=== PATIENT | male | born 1960 | race Caucasian/White ===

== ENCOUNTER 2019-06-25 20:06 | Inpatient (IN) | payer OTHER ==
[~2019-06-25] VITALS: Ht 162.5 cm; Wt 58.7 kg
[2019-06-25 20:20] VITALS: BP 200/110
[2019-06-25 20:39] LABS: BASO % 0.3 % (0.0-1.0); EOS # 0.2 10*3/uL (0.0-0.4); EOS % 1.3 % (1.0-4.0); HEMATOCRIT 28.7 % (42.0-52.0); HEMOGLOBIN 9.9 g/dl (14.0-18.0); LYMPH # 1.5 10*3/uL (1.3-4.4); LYMPH % 12.2 % (27.0-41.0); MEAN CELL VOLUME 82.7 fl (80.0-94.0); MEAN CORPUSCULAR HGB 28.5 pg (27.0-31.0); MEAN CORPUSCULAR HGB CONC 34.5 g/dl (33.0-37.0); MEAN PLATELET VOLUME 9.3 fl (9.6-12.3); MONO % 8.4 % (3.0-9.0); NEUT # 9.3 10*3/uL (2.3-7.9); PLATELET COUNT AUTOMATED 465 10*3/uL (130-400); RED BLOOD COUNT 3.47 10*6/uL (4.50-5.90); RED CELL DISTRI WIDTH 14.2 % (0-14.5); WHITE BLOOD COUNT 12.1 10*3/uL (4.8-10.8)
[2019-06-25 20:49] LABS: ACT PARTIAL THROMBO TIME 28.8 SECONDS (20.0-32.1); INTERNATIONAL NORM RATIO 0.9 (2.0-3.5)
[2019-06-25 20:56] LABS: ALBUMIN 2.3 gm/dl (3.1-4.5); CREATININE 3.01 mg/dL (0.70-1.30); POTASSIUM 2.7 mmol/L (3.5-5.1); TOTAL PROTEIN 7.4 gm/dL (6.4-8.2); TROPONIN I 0.044 ng/ml (<0.045)
[2019-06-25 21:08] VITALS: BP 190/108
[2019-06-25 21:28] LABS: BILIRUBIN NEGATIVE (NEGATIVE); BLOOD 2+ (NEGATIVE); CLARITY CLEAR (CLEAR); COLOR YELLOW (YELLOW); GLUCOSE TRACE (NEGATIVE); KETONE NEGATIVE (NEGATIVE); LEUKO ESTERASE NEGATIVE (NEGATIVE); NITRITE NEGATIVE (NEGATIVE); UROBILINOGEN 0.2 E.U./dl (0.2-1.0)
[2019-06-25 21:42] VITALS: BP 180/108
[2019-06-25 21:42] LABS: BACTERIA 1+
[2019-06-25 22:28] LABS: URINE AMPHETAMINES < 1000 (1000ng/ml); URINE BARBITURATES < 200 (200ng/ml); URINE BENZODIAZEPINES < 200 (200ng/ml); URINE CANNABINOIDS (THC) < 50 (50ng/ml); URINE COCAINE < 300 (300ng/ml); URINE METHADONE < 300 (300ng/ml); URINE OPIATES < 300 (300ng/ml)
[2019-06-25 22:32] VITALS: BP 198/108
[2019-06-25 22:35] LABS: URINE PHENCYCLIDINE < 25 (25ng/ml)
[2019-06-25 23:24] VITALS: BP 194/110
[2019-06-26] VITALS (11 sets, daily range): BP systolic 160–200; BP diastolic 64–106
[2019-06-26] MEDS ORDERED: HYDRALAZINE HC100 MG PO (00:39)
[2019-06-26] MEDS ORDERED: CLONIDINE HCL0.1 MG PO (00:40)
[2019-06-26] MEDS ORDERED: ALDACTONE25 M1 PO (00:41)
[2019-06-26] MEDS ORDERED: OMEPRAZOLE MAGN20 MG PO (00:41)
[2019-06-26] MEDS ORDERED: LOPRESSOR50 M1 PO (00:42)
[2019-06-26] MEDS ORDERED: TYLENOL EXTRA500 MG PO (00:42)
[2019-06-26 01:28] LABS: ABG BASE EXCESS 6.3 mmol/L (-2.0-2.0); ARTERIAL BLOOD GAS PH 7.586 (7.35-7.45)
[2019-06-26 03:07] LABS: BASO # 0.1 10*3/uL (0.0-0.1); BASO % 0.4 % (0.0-1.0); EOS # 0.1 10*3/uL (0.0-0.4); HEMOGLOBIN 9.9 g/dl (14.0-18.0); LYMPH # 1.2 10*3/uL (1.3-4.4); LYMPH % 10.1 % (27.0-41.0); MEAN CELL VOLUME 81.9 fl (80.0-94.0); MEAN CORPUSCULAR HGB 28.9 pg (27.0-31.0); MEAN CORPUSCULAR HGB CONC 35.4 g/dl (33.0-37.0); MEAN PLATELET VOLUME 9.2 fl (9.6-12.3); MONO # 0.9 10*3/uL (0.1-1.0); MONO % 7.1 % (3.0-9.0); NEUT # 9.7 10*3/uL (2.3-7.9); NEUT % 80.3 % (47.0-73.0); PLATELET COUNT AUTOMATED 451 10*3/uL (130-400); RED BLOOD COUNT 3.42 10*6/uL (4.50-5.90); RED CELL DISTRI WIDTH 14.1 % (0-14.5); WHITE BLOOD COUNT 12.1 10*3/uL (4.8-10.8)
[2019-06-26 03:19] LABS: ACT PARTIAL THROMBO TIME 29.3 SECONDS (20.0-32.1); INTERNATIONAL NORM RATIO 0.9 (2.0-3.5)
[2019-06-26 03:28] LABS: ALBUMIN 2.2 gm/dl (3.1-4.5); CREATININE 3.02 mg/dL (0.70-1.30); PHOSPHOROUS 2.8 mg/dL (2.5-4.9); POTASSIUM 2.9 mmol/L (3.5-5.1); TOTAL PROTEIN 7.1 gm/dL (6.4-8.2)
[2019-06-26 03:33] LABS: FREE T4 1.44 ng/dl (0.76-1.46); THYROID STIM HORMONE (HS) 0.62 uIU/ml (0.358-4.75)
[2019-06-26 06:51] LABS: VITAMIN D, 25-HYDROXY 11.3 ng/mL (30-100)
[2019-06-27] VITALS: BP 162/97
[2019-06-27 07:05] LABS: BASO % 0.4 % (0.0-1.0); EOS # 0.2 10*3/uL (0.0-0.4); EOS % 1.9 % (1.0-4.0); HEMATOCRIT 26.6 % (42.0-52.0); LYMPH # 1.6 10*3/uL (1.3-4.4); LYMPH % 14.4 % (27.0-41.0); MEAN CELL VOLUME 84.4 fl (80.0-94.0); MEAN CORPUSCULAR HGB 28.6 pg (27.0-31.0); MEAN CORPUSCULAR HGB CONC 33.8 g/dl (33.0-37.0); MEAN PLATELET VOLUME 9.5 fl (9.6-12.3); MONO % 8.7 % (3.0-9.0); NEUT # 8.1 10*3/uL (2.3-7.9); PLATELET COUNT AUTOMATED 460 10*3/uL (130-400); RED BLOOD COUNT 3.15 10*6/uL (4.50-5.90); RED CELL DISTRI WIDTH 14.6 % (0-14.5)
[2019-06-27 07:16] LABS: ALBUMIN 2.3 gm/dl (3.1-4.5); CREATININE 2.83 mg/dL (0.70-1.30); PHOSPHOROUS 3.6 mg/dL (2.5-4.9); POTASSIUM 3.2 mmol/L (3.5-5.1)
[2019-06-27 08:10] VITALS: BP 166/100; BP 167/110
[2019-06-27 12:30] VITALS: BP 137/78
[2019-06-27 16:00] VITALS: BP 158/92
[2019-06-27] MEDS ORDERED: AMLODIPINE BESYL5 MG PO (17:54)
[2019-06-28 06:04] LABS: TOTAL PROTEIN, SERUM 6.3 g/dL (6.0-8.5)
[2019-06-28 07:06] LABS: HEPATITIS B SURFACE AG Negative (Negative); HEPATITIS C VIRUS ANTIBODY <0.1 (0.0-0.9)
[2019-06-28 08:08] LABS: COMPLEMENT C4 001834 26 mg/dL (14-44)
[2019-06-28 15:04] LABS: A/G RATIO 0.6 (0.7-1.7); ALBUMIN 2.4 g/dL (2.9-4.4); ALPHA-1-GLOBULIN 0.6 g/dL (0.0-0.4); ALPHA-2-GLOBULIN 1.2 g/dL (0.4-1.0); BETA GLOBULIN 1.2 g/dL (0.7-1.3); GAMMA GLOBULIN 0.9 g/dL (0.4-1.8); GLOBULIN, TOTAL 3.9 g/dL (2.2-3.9); M-SPIKE Not Observed g/dL (Not Observed)
[2019-06-28 16:06] LABS: ATYPICAL PANCA 1:20 titer (Neg:<1:20); CYTOPLASMIC (C-ANCA) <1:20 titer (Neg:<1:20)
== END 2019-06-27 19:35 | disposition home or self-care (01) | DRG 133 ==
LOC: ED 20:06 → 4E 23:40 → EDHOLD 23:40 → 4E 23:47
PROVIDERS: Emergency Medicine Emergency Medical Services; Hospitalist; Internal Medicine; ADMIT Internal Medicine
DX: J96.01 Acute respiratory failure with hypoxia (principal); N17.0 Acute kidney failure with tubular necrosis; I16.1 Hypertensive emergency; I11.0 Hypertensive heart disease with heart failure; D64.9 Anemia, unspecified; E87.1 Hypo-osmolality and hyponatremia; E43 Unspecified severe protein-calorie malnutrition; I50.9 Heart failure, unspecified; F17.210 Nicotine dependence, cigarettes, uncomplicated; D72.829 Elevated white blood cell count, unspecified; R31.9 Hematuria, unspecified; E87.8 Other disorders of electrolyte and fluid balance, not elsewhere classified; E83.41 Hypermagnesemia; R74.0 Nonspecific elevation of levels of transaminase and lactic acid dehydrogenase [LDH]; N26.1 Atrophy of kidney (terminal); K21.9 Gastro-esophageal reflux disease without esophagitis; Z71.6 Tobacco abuse counseling; Z68.22 Body mass index [BMI] 22.0-22.9, adult; Z82.49 Family history of ischemic heart disease and other diseases of the circulatory system; Z79.899 Other long term (current) drug therapy

== ENCOUNTER 2022-07-19 11:34 | Inpatient (IN) | payer OTHER ==
[~2022-07-19] VITALS: Ht 162.6 cm; Wt 58.6 kg
[~2022-07-19 11:34] MED LIST: ALDACTONE25 M1 PO; AMLODIPINE BESYL5 MG PO; CLONIDINE HCL0.1 MG PO; HYDRALAZINE HC100 MG PO; LOPRESSOR50 M1 PO; OMEPRAZOLE MAGN20 MG PO; TYLENOL EXTRA500 MG PO
[2022-07-19 11:44] VITALS: BP 179/104
[2022-07-19 12:33] LABS: POTASSIUM 3.4 mmol/L (3.4-5.1); TOTAL PROTEIN 7.5 gm/dL (6.0-8.0)
[2022-07-19 12:44] LABS: BASO # 0.1 10*3/uL (0.0-0.1); BASO % 0.4 % (0.0-1.0); EOS # 0.5 10*3/uL (0.0-0.4); EOS % 3.8 % (1.0-4.0); HEMATOCRIT 26.6 % (42.0-52.0); LYMPH # 0.7 10*3/uL (1.3-4.4); LYMPH % 4.9 % (27.0-41.0); MEAN CELL VOLUME 89.6 fl (80.0-94.0); MEAN CORPUSCULAR HGB 30.6 pg (27.0-31.0); MEAN CORPUSCULAR HGB CONC 34.2 g/dl (33.0-37.0); MONO # 0.9 10*3/uL (0.1-1.0); MONO % 6.6 % (3.0-9.0); NEUT # 11.9 10*3/uL (2.3-7.9); NEUT % 83.9 % (47.0-73.0); PLATELET COUNT AUTOMATED 191 10*3/uL (130-400); RED BLOOD COUNT 2.97 10*6/uL (4.50-5.90); RED CELL DISTRI WIDTH 14.4 % (0-14.5); WHITE BLOOD COUNT 14.1 10*3/uL (4.8-10.8)
[2022-07-19 13:13] VITALS: BP 155/100
[2022-07-19 13:14] VITALS: BP 155/100
[2022-07-19 13:40] LABS: BILIRUBIN Negative (Negative); BLOOD Negative (Negative); CLARITY Clear (Clear); COLOR Yellow (Yellow); GLUCOSE Trace (Negative); KETONE Negative (Negative); LEUKO ESTERASE Negative (Negative); NITRITE Negative (Negative); SPECIFIC GRAVITY 1.015 (1.001-1.030); UROBILINOGEN 0.2 E.U./dl (0.0-1.0)
[2022-07-19 13:47] VITALS: BP 151/90
[2022-07-19 13:50] LABS: BACTERIA TRACE; EPITHELIAL CELLS 0-2; WBC 0-2 wbc/hpf (0-5)
[2022-07-19 15:13] VITALS: BP 172/100
[2022-07-19] MEDS ORDERED: ASPIRIN CHEWABL81 MG PO (15:36)
[2022-07-19] MEDS ORDERED: ATORVASTATIN CA80 M1 PO (15:37)
[2022-07-19] MEDS ORDERED: URSODIOL300 M1 PO (15:37)
[2022-07-19] MEDS ORDERED: PROTONIX40 MG PO (15:37)
[2022-07-19] MEDS ORDERED: BUMETANIDE1 MG PO (15:38)
[2022-07-19] MEDS ORDERED: NITROSTAT0.4 MG SL (15:38)
[2022-07-19] MEDS ORDERED: VENTOLIN 02.5 MG/3 M INH (15:39)
[2022-07-19] MEDS ORDERED: CLONIDINE HCL0.1 MG PO (15:40)
[2022-07-19] MEDS ORDERED: NORVASC10 MG PO (15:41)
[2022-07-19] MEDS ORDERED: VITAMIN D325 MCG PO (15:42)
[2022-07-19] MEDS ORDERED: COREG12.5 M1 PO (15:42)
[2022-07-19] MEDS ORDERED: DOXAZOSIN2 MG PO (15:42)
[2022-07-19] MEDS ORDERED: TRAZODONE50 MG PO (15:43)
[2022-07-19] MEDS ORDERED: HYDRALAZINE HC100 MG PO (15:43)
[2022-07-19] MEDS ORDERED: BUDESONIDE0.5 MG/2 M NEB (15:44)
[2022-07-19] MEDS ORDERED: Rocaltrol0.25 MCG PO (15:45)
[2022-07-19] MEDS ORDERED: BROVANA15 MCG/2 M INH (15:49)
[2022-07-19 20:00] VITALS: BP 160/108
[2022-07-20] VITALS: BP 133/80
[2022-07-20 07:11] LABS: BASO # 0.1 10*3/uL (0.0-0.1); BASO % 0.7 % (0.0-1.0); EOS # 0.3 10*3/uL (0.0-0.4); EOS % 3.8 % (1.0-4.0); HEMATOCRIT 25.8 % (42.0-52.0); LYMPH # 0.8 10*3/uL (1.3-4.4); LYMPH % 9.9 % (27.0-41.0); MEAN CELL VOLUME 91.2 fl (80.0-94.0); MEAN CORPUSCULAR HGB CONC 32.9 g/dl (33.0-37.0); MEAN PLATELET VOLUME 9.9 fl (9.6-12.3); MONO # 0.8 10*3/uL (0.1-1.0); MONO % 9.3 % (3.0-9.0); NEUT # 6.3 10*3/uL (2.3-7.9); NEUT % 75.8 % (47.0-73.0); PLATELET COUNT AUTOMATED 192 10*3/uL (130-400); RED BLOOD COUNT 2.83 10*6/uL (4.50-5.90); RED CELL DISTRI WIDTH 14.3 % (0-14.5); WHITE BLOOD COUNT 8.3 10*3/uL (4.8-10.8)
[2022-07-20 07:57] LABS: FREE T4 1.34 ng/dl (0.89-1.76); POTASSIUM 3.7 mmol/L (3.4-5.1); THYROID STIM HORMONE (HS) 5.337 uIU/ml (0.550-4.780)
[2022-07-20 08:00] VITALS: BP 150/98
[2022-07-20 08:19] LABS: VITAMIN D, 25-HYDROXY 30.8 ng/mL (30-100)
[2022-07-20 12:00] VITALS: BP 137/91
[2022-07-20 16:00] VITALS: BP 170/96
[2022-07-20 16:15] VITALS: BP 142/84
[2022-07-20 20:00] VITALS: BP 178/110
[2022-07-21] VITALS: BP 158/99; BP 168/104
[2022-07-21 08:00] VITALS: BP 170/98
[2022-07-21 12:00] VITALS: BP 185/117
[2022-07-21 12:04] VITALS: BP 164/108
[2022-07-21 12:28] LABS: BASO # 0.1 10*3/uL (0.0-0.1); BASO % 0.7 % (0.0-1.0); EOS # 0.4 10*3/uL (0.0-0.4); EOS % 3.4 % (1.0-4.0); HEMATOCRIT 31.4 % (42.0-52.0); LYMPH # 1.1 10*3/uL (1.3-4.4); LYMPH % 9.8 % (27.0-41.0); MEAN CORPUSCULAR HGB 29.9 pg (27.0-31.0); MEAN CORPUSCULAR HGB CONC 32.8 g/dl (33.0-37.0); MEAN PLATELET VOLUME 9.3 fl (9.6-12.3); MONO # 0.9 10*3/uL (0.1-1.0); MONO % 8.2 % (3.0-9.0); NEUT # 8.3 10*3/uL (2.3-7.9); NEUT % 77.7 % (47.0-73.0); PLATELET COUNT AUTOMATED 223 10*3/uL (130-400); RED BLOOD COUNT 3.45 10*6/uL (4.50-5.90); RED CELL DISTRI WIDTH 14.2 % (0-14.5); WHITE BLOOD COUNT 10.7 10*3/uL (4.8-10.8)
[2022-07-21] MEDS ORDERED: 'CLONIDINE0.1 MG PO (12:39)
[2022-07-21] MEDS ORDERED: LISINOPRIL10 M1 PO (12:40)
[2022-07-21 12:46] LABS: POTASSIUM 3.3 mmol/L (3.4-5.1)
[2022-07-21 12:49] VITALS: BP 152/106
[2022-07-21 13:30] VITALS: BP 148/92
== END 2022-07-21 13:42 | disposition home or self-care (01) | DRG 194 ==
LOC: ED 11:34 → 5E 14:11 → EDHOLD 14:11 → 5E 14:57
PROVIDERS: Internal Medicine; Registered Nurse; ADMIT Internal Medicine; ATTEND Internal Medicine
PROC: 5A1D70Z Performance of Urinary Filtration, Intermittent, Less than 6 Hours Per Day (ICD-10-PCS; principal; 2022-07-19)
PROC: 5A1D70Z Performance of Urinary Filtration, Intermittent, Less than 6 Hours Per Day (ICD-10-PCS; 2022-07-21)
DX: I13.2 Hypertensive heart and chronic kidney disease with heart failure and with stage 5 chronic kidney disease, or end stage renal disease (principal); I50.32 Chronic diastolic (congestive) heart failure; G93.41 Metabolic encephalopathy; N18.6 End stage renal disease; K21.9 Gastro-esophageal reflux disease without esophagitis; E83.39 Other disorders of phosphorus metabolism; F17.210 Nicotine dependence, cigarettes, uncomplicated; D72.829 Elevated white blood cell count, unspecified; Z91.199 Patient's noncompliance with other medical treatment and regimen due to unspecified reason; Z99.2 Dependence on renal dialysis; Z82.49 Family history of ischemic heart disease and other diseases of the circulatory system; Z71.6 Tobacco abuse counseling